=== PATIENT | male | born 1975 | race Caucasian/White ===

== ENCOUNTER 2018-02-02 09:14 | Emergency (ER) | payer OTHER ==
[~2018-02-02] VITALS: Ht 172.7 cm; Wt 81.6 kg
[2018-02-02 09:14] VITALS: BP_SYST 92
[2018-02-02] MEDS ORDERED: DIPH-TET-PERTUS Vaccine 0.5 ML VIAL (ADACEL) I.M. ONE (09:30)
[2018-02-02] MEDS ORDERED: LIDOCAINE 1% 10 MG/ML, 20 ML MDV INJ ONE (10:15)
[2018-02-02] MEDS ORDERED: MORPHINE 4 MG/ML INJ. SYRINGE IVP ONE (10:30)
[2018-02-02] MEDS ORDERED: AMPICILLIN SODIUM/SULBACTAM NA 3 GM in NS 100 ML IV ONE (10:30)
[2018-02-02] MEDS ORDERED: MORPHINE 4 MG/ML INJ. SYRINGE ONE (11:18)
[2018-02-02 13:35] VITALS: BP_SYST 119
== END 2018-02-02 13:35 | disposition short-term general hospital (02) ==
LOC: SED 09:14
DX: S68.121A Partial traumatic metacarpophalangeal amputation of left index finger, initial encounter (principal); X58.XXXA Exposure to other specified factors, initial encounter; Y93.89 Activity, other specified; Y92.89 Other specified places as the place of occurrence of the external cause; Y99.8 Other external cause status
CPT/HCPCS: 73130; 90471; 90715; 96365; 96375; 99285; J0295; J2001; J2270; 96374